=== PATIENT | male | born 1960 | race Caucasian/White ===

== ENCOUNTER 2017-02-03 16:22 | Emergency (ER) | payer OTHER ==
[2017-02-03 18:27] LABS: BASO % 0.1 % (0.2-1.2); GRAN # 12.8 10_X3_uL (1.8-5.4); GRAN % 87.4 % (34.0-67.9); HEMATOCRIT 45.6 % (40-51); HEMOGLOBIN 14.9 g/dL (13.7-17.5); LYMPH # 0.8 10_X3_uL (1.3-3.6); LYMPH % 5.6 % (21.8-53.1); MEAN CORPUSCULAR HEMOGLOBIN 29.9 pg (27.0-33.0); MEAN CORPUSCULAR HGB CONC 32.7 g/dL (32.0-36.0); MEAN CORPUSCULAR VOLUME 91.4 fL (79-92); MEAN PLATELET VOLUME 10.1 fl (7.5-11.5); MONO % 6.9 % (5.3-12.2); PLATELET COUNT 220 x10_3/uL (163-337); RED BLOOD COUNT 4.99 x10_6/uL (4.6-6.1); RED CELL DISTRIBUTION WIDTH 14.3 % (11.6-14.4); WHITE BLOOD COUNT 14.6 x10_3/uL (4.2-9.1)
[2017-02-03 18:46] LABS: ALBUMIN 4.8 gm/dL (3.4-5.0); ALKALINE PHOSPHATASE 62 U/L (50-136); ALT/SGPT 26 U/L (7.53-40.17); AMYLASE 99 U/L (15.62-74.58); AST/SGOT 34 U/L (6.66-35.34); BILIRUBIN,TOTAL 0.66 mg/dL (0.0-1.0); BLOOD UREA NITROGEN 20 mg/dL (7-18); CALCIUM 8.5 mg/dL (8.7-10.7); CREATININE 1.1 mg/dL (0.6-1.3); GLUCOSE,RANDOM 126 mg/dL (70-99); LIPASE 31 U/L (6.75-60.75); POTASSIUM 4.9 mmol/L (3.5-5.1); SODIUM 132 mmol/L (136-145); TOTAL PROTEIN 8.2 gm/dL (6.4-8.2)
[2017-02-03 18:52] LABS: CARBON DIOXIDE 9 mmol/L (21-32)
[2017-02-03 20:47] LABS: ARTERIAL BLD GAS O2 SATURATION 97.7 % (94-98); ARTERIAL BLOOD GAS BASE EXCESS -16.9 mmol/L (-2.0-3.0); ARTERIAL BLOOD GAS HCO3 9.4 mmol/L (22-26); ARTERIAL BLOOD GAS PCO2 23.8 mmHg (35-48); ARTERIAL BLOOD GAS pH 7.22 (7.35-7.45)
[2017-02-03 20:48] LABS: URINE BILIRUBIN NEGATIVE (NEGATIVE); URINE BLOOD TRACE (NEGATIVE); URINE GLUCOSE (UA) NORMAL (NORMAL); URINE KETONE 3+ (NEGATIVE); URINE LEUKOCYTE ESTERASE NEGATIVE (NEGATIVE); URINE NITRATE NEGATIVE (NEGATIVE); URINE PROTEIN 1+ (NEGATIVE); UROBILINOGEN NORMAL mg/dL (<1.0)
[2017-02-03 20:55] LABS: URINE RBC 0-5 /[HPF] (0-2)
[2017-02-03 20:56] LABS: ETHYL ALCOHOL < 10 mg/dl
[2017-02-04 01:13] LABS: ARTERIAL BLD GAS O2 SATURATION 97.1 % (94-98); ARTERIAL BLOOD GAS BASE EXCESS -7.5 mmol/L (-2.0-3.0); ARTERIAL BLOOD GAS HCO3 16.8 mmol/L (22-26); ARTERIAL BLOOD GAS PCO2 31.3 mmHg (35-48); ARTERIAL BLOOD GAS pH 7.35 (7.35-7.45)
[2017-02-04 03:03] LABS: BASO % 0.1 % (0.2-1.2); EOS % 0.1 % (0.8-7.0); GRAN # 6.1 10_X3_uL (1.8-5.4); GRAN % 72.6 % (34.0-67.9); HEMATOCRIT 35.4 % (40-51); HEMOGLOBIN 11.9 g/dL (13.7-17.5); LYMPH # 1.3 10_X3_uL (1.3-3.6); MEAN CORPUSCULAR HEMOGLOBIN 30.3 pg (27.0-33.0); MEAN CORPUSCULAR HGB CONC 33.6 g/dL (32.0-36.0); MEAN CORPUSCULAR VOLUME 90.1 fL (79-92); MEAN PLATELET VOLUME 9.6 fl (7.5-11.5); MONO % 12.2 % (5.3-12.2); PLATELET COUNT 181 x10_3/uL (163-337); RED BLOOD COUNT 3.93 x10_6/uL (4.6-6.1); WHITE BLOOD COUNT 8.4 x10_3/uL (4.2-9.1)
[2017-02-04 03:15] LABS: BLOOD UREA NITROGEN 16 mg/dL (7-18); CALCIUM 6.9 mg/dL (8.7-10.7); CARBON DIOXIDE 18 mmol/L (21-32); CREATININE 0.8 mg/dL (0.6-1.3); GLUCOSE,RANDOM 105 mg/dL (70-99); POTASSIUM 3.9 mmol/L (3.5-5.1); SODIUM 138 mmol/L (136-145)
== END 2017-02-04 03:25 | disposition short-term general hospital (02) ==
LOC: ER 16:22
PROVIDERS: Emergency Medicine
DX: E87.2 Acidosis (principal); R11.10 Vomiting, unspecified; R53.1 Weakness; I10 Essential (primary) hypertension
CPT/HCPCS: 36415; 36600; 71020; 80048; 80053; 81001; 82009; 82150; 82803; 83605; 83690; 85025; 96361; 96365; 96366; 96375; 99070; 99284-25; G0480